=== PATIENT | male | born 1970 | race Caucasian/White ===

== ENCOUNTER 2020-06-03 19:31 | Emergency (ER) | payer BC, SELFPAY ==
[2020-06-03 19:35] VITALS: BP 171/99; PULSE 95; RESP 20; TEMP 36.6; O2SAT 95
[2020-06-03] MEDS: EPINEPHrine HCL INJ 1 MG/ML AMPUL 0.3 MG SUB-Q (19:44)
[2020-06-03] MEDS: diphenhydrAMINE HCl INJ 50 MG/ML VIAL 25 MG IV PUSH (19:45)
[2020-06-03] MEDS: methylPREDNISolone SOD SUCC 125 MG VIAL IV PUSH (19:46)
[2020-06-03] MEDS: ALBUTEROL SULFATE NEB 2.5 MG/3 ML INH INHALATION (19:46)
[2020-06-03 19:48] VITALS: PULSE 77; RESP 20; O2SAT 97
[2020-06-03 19:52] VITALS: PULSE 87; RESP 20; O2SAT 98
--- NOTE | 2020-06-03 19:56 | ED.ALLEREA ---
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 He started after he ate some shrimp approximately 7:00 p.m. this evening. He states he has had similar reactions in the past that got better with Benadryl. But there are other times where he has tolerated shrimp with no difficulty. complaint: allergic reaction and hives Onset (ago): minute(s) (30) Exposure: food Known history of allergy to: Shrimp Symptoms: rash, itching, difficulty breathing and other ( throat swelling) Severity: moderate Treatment prior to arrival: other ( oral antihistamine) Previous Allergic Reaction History: anaphylaxis Related Data Allergies Allergy/AdvReac Type Severity Reaction Status Date / Time Penicillins Allergy Unknown Verified 03/01/15 11:56 Review of Systems Constitutional: Constitutional: Denies chills and Denies fever(s) Eyes: Eyes: Denies change in vision and Denies photophobia ENT: Denies dysphagia, Denies nasal congestion and Denies sore throat Cardiovascular: Cardiovascular: Denies chest pain and Denies radiating jaw, neck or arm pain Respiratory: Respiratory: Denies cough, Denies dyspnea and Reports wheezing Gastrointestinal: Gastrointestinal: Denies abdominal pain, Denies diarrhea, Denies nausea and Denies vomiting Musculoskeletal: Musculoskeletal: Denies arthralgias and Denies joint swelling Integumentary/Breasts: Skin/Breast: Reports pruritus, Reports erythema and Reports rash Neurologic: Denies vertigo, Denies dizziness and Denies syncope Hematologic/Lymphatic: Hematologic/Lymphatic: Denies easy bleeding and Denies easy bruising Allergic/Immunologic: Allergic/Immunologic: Denies lip swelling and Denies wheezing PMFSH Family History Family History (Updated 02/18/14 @ 07:13 by DOCTOR UNKNOWN) Mother Hypertension Social History Social History (Updated 06/03/20 @ 19:59 by Brent Skinner MD) Smoking status: Never smoker Alcohol intake: never Substance use: never Living arrangements: with family Exam Const: General: healthy appearing and alert Orientation/consciousness: patient oriented x3 Limitations: no limitations Other: Mild acute distress. No respiratory distress. HENMT: Head: normal to inspection Ears: external ears normal, TM's normal bilaterally and EAC's normal General nose exam: Normal nares present Face and sinus: normal facial exam Mouth: Yes moist mucous membranes Throat: uvula midline Other: Very mild pharyngeal edema. No erythema or exudate. Eyes: Conjunctivae: conjunctivae normal Pupils: Equal, round and reactive pupils present EOM: EOMs intact bilaterally Neck: Neck: normal visual inspection and no lymphadenopathy Resp: Effort & Inspection: normal respiratory effort and not labored Auscultation: no rales, no rhonchi and wheezes Cardio: Rate: regular rate Rhythm: regular rhythm Heart sounds: no murmurs Skin: General skin exam: normal color, no jaundice and no pallor Rashes: no rashes Neuro: General: patient oriented x3, moves all extremities, no focal motor deficits and CN's II-XI intact bilaterally Speech: normal speech Gait exam (Neuro): Normal gait present Extrem: General: normal to inspection and no clubbing, cyanosis or edema Psych: Appearance: grossly normal and well kempt Affect: normal affect and Anxious affect present Attitude: cooperative Thought content: Yes Normal thought content present Course Course Emergency Course: 2100: patient states he is asymptomatic. He denies throat swelling, itching, wheezing or shortness of breath. Exam is normal. Vital Signs Vital signs: Vit
[2020-06-03 20:06] VITALS: BP 158/91; PULSE 82; RESP 20; O2SAT 97
[2020-06-03 20:46] VITALS: BP 158/88; PULSE 86; RESP 16; O2SAT 97
[2020-06-03 21:44] VITALS: BP 134/94; PULSE 79; RESP 16; O2SAT 96
== END 2020-06-03 22:01 | disposition home or self-care (01) ==
PROVIDERS: Emergency Provider Emergency Medicine
DX: T78.2XXA Anaphylactic shock, unspecified, initial encounter (principal)
CPT/HCPCS: 94640; 96372; 96374; 96375; 99283; 99284; J0171; J1200; J2930

== ENCOUNTER 2020-10-26 08:31 | Emergency (ER) | payer BC, SELFPAY ==
--- NOTE | ~2020-10-26 | XR_ITS ---
EXAMINATION: XR abdomen/kub 1V EXAM DATE: 10/26/2020 09:22 INDICATION: RLQ abdominal pain. TECHNIQUE: Frontal projection(s) of the abdomen for interpretation. There is no prior study for alexx taylor. FINDINGS: Small amount of colonic stool and gas. No small bowel dilation, nonobstructive bowel gas pattern. There are no suspicious calcifications identified. There is no organomegaly suspected. There are mild bony degenerative changes. IMPRESSION: Unremarkable abdomen x-ray exam. Reviewed, dictated and finalized at location B.
[2020-10-26 08:38] VITALS: BP 148/106; PULSE 80; RESP 14; TEMP 36.8; O2SAT 96
--- NOTE | 2020-10-26 08:55 | ED.GENADULT ---
HPI - General Adult General Chief complaint: Abdominal Pain Stated complaint: Sharp pain in r side Source: patient Mode of arrival: ambulatory Limitations: no limitations History of Present Illness HPI narrative: Raymond is a previously healthy 50M with no surgical history presented to the ER with RLQ pain. It started insidiously while sitting 3-4 days ago. It is described as a constant pain that feels like gas. It is not relieved with pepto. No aggravating factors. He denies any CP, SOB, nausea, vomiting, melena, constipation, dysuria, hematuria or hematochezia. He has a BM daily and had one this morning. Related Data Home Medications Medication Instructions Recorded Confirmed No Home Medications 10/26/20 10/26/20 Allergies Allergy/AdvReac Type Severity Reaction Status Date / Time Penicillins Allergy Unknown Verified 03/01/15 11:56 Review of Systems Constitutional: Constitutional: Reports no additional constitutional complaints Eyes: Eyes: Reports no additional eye complaints ENT: Reports system reviewed and no additional complaints, except as documented Cardiovascular: Cardiovascular: Reports no additional cardiovascular complaints Respiratory: Respiratory: Reports no additional respiratory complaints Gastrointestinal: Gastrointestinal: Reports as per HPI Genitourinary: Genitourinary: Reports no additional male genitourinary complaints Musculoskeletal: Musculoskeletal: Reports no additional musculoskeletal complaints Integumentary/Breasts: Skin/Breast: Reports system reviewed and no additional complaints, except as docu Neurologic: Reports system reviewed and no additional complaints, except as documented Psychiatric: Psychiatric: Reports no additional psychiatric complaints Endocrine: Endocrine: Reports no additional endocrine complaints Hematologic/Lymphatic: Hematologic/Lymphatic: Reports no additional hematologic/lymphatic complaints Allergic/Immunologic: Allergic/Immunologic: Reports no additional allergic/immunologic complaints [facility] Family History Family History Mother Hypertension Social History Social History Smoking status: Never smoker Alcohol intake: never Substance use: never Exam Const: General: no acute distress and alert Orientation/consciousness: patient oriented x3 Limitations: No altered mental status HENMT: Head: normal to inspection Other: atrauamtic Eyes: Conjunctivae: conjunctivae normal Pupils: Equal, round and reactive pupils present Neck: Neck: normal visual inspection Chest: Chest palpation & inspection: normal inspection of the chest Resp: Effort & Inspection: normal respiratory effort Auscultation: clear to auscultation bilaterally Cardio: Rate: regular rate Rhythm: regular rhythm GI: Inspection: non-distended GI Palp: Yes Soft to palpation and No Guarding due to palpation present (GI) Other: mild TTP in the RUQ. No rebound tenderness or guarding. Negative psoas sign and obturator sign. : Testes: Testes normal Back/Spine/Pelvis: Back: no CVA tenderness Skin: General skin exam: normal color Rashes: no rashes Neuro: General: patient oriented x3 and moves all extremities Extrem: General: normal to inspection Psych: Appearance: grossly normal Mental Status: mental status grossly normal Affect: normal affect Course Course Emergency Course: Raymond was evaluated. Labs and Xray were ordered. He declined pain meds at this time. Labs largely unremarkable. Shepherd score of 2 points, low likelihood of appendicits, Appendicitis inflammatory response score 1 point, low risk EXAMINATION: XR abdomen/kub 1V EXAM DATE: 10/26/2020 09:22 INDICATION: RLQ abdominal pain. TECHNIQUE: Frontal projection(s) of the abdomen for interpretation. There is no prior study for comparison. FINDINGS: Small amount of colonic stool and gas. No
[2020-10-26 09:00] VITALS: BP 158/102; PULSE 69; RESP 14; O2SAT 95
--- NOTE | 2020-10-26 09:06 | PC.NURSE ---
photo optics technician at bedside for kub ordered by erp
[2020-10-26 09:09] LABS: Basophils Absolute Auto 0.03 K/mm3 (0.00-0.10); Basophils Percent Auto 0.3 % (0.0-1.0); Eosinophils Absolute Auto 0.11 K/mm3 (0.02-0.50); Eosinophils Percent Auto 1.2 % (1.0-6.0); Hematocrit 44.2 % (40.0-54.0); Hemoglobin 14.5 g/dL (14.0-18.0); Immature Granulocyte Absolute 0.03 K/mm3 (0.00-0.00); Immature Granulocyte Percent A 0.3 % (0.0-0.0); Lymphocytes Absolute Auto 1.93 K/mm3 (1.10-4.50); Lymphocytes Percent Auto 20.6 % (18.0-42.0); Mean Corpuscular HGB Conc 32.8 g/dL (32.0-36.0); Mean Corpuscular Hemoglobin 28.5 pg (27.0-31.0); Mean Platelet Volume 9.8 fl (8.7-11.0); Monocytes Absolute Auto 0.82 K/mm3 (0.10-0.90); Monocytes Percent Auto 8.8 % (2.0-11.0); Neutrophils Absolute Auto 6.5 K/mm3 (1.7-7.2); Neutrophils Percent Auto 68.8 % (50.0-70.0); Platelet Count Result 262 K/mm3 (150-420); Red Blood Count 5.08 M/mm3 (4.70-6.10); Red Cell Distribution Width 12.4 % (11.6-14.4); White Blood Count 9.4 K/mm3 (4.8-10.8)
[2020-10-26 09:19] LABS: Prothrombin Time 10.6 Seconds (9.50-12.10)
[2020-10-26 09:21] LABS: Alanine Aminotransferase 43 U/L (16-63); Albumin Level 3.6 g/dL (3.4-5.0); Alkaline Phosphatase 99 U/L (46-116); Anion Gap 9 mmol/L (8-16); Aspartate Amino Transferase 16 U/L (15-37); Bilirubin,Total 0.7 mg/dL (0.00-1.00); Blood Urea Nitrogen 10 mg/dL (7-18); Calcium 9.1 mg/dL (8.5-10.1); Carbon Dioxide 27 mmol/L (21-32); Chloride 103 mmol/L (98-108); Estimated CRCL calculation 105 ml/min; Estimated Glomerular Filt Rate > 60; Glucose 99 mg/dL (70-99); Osmolality Calculated 287 mOsm/kg (285-295); Potassium 3.6 mmol/L (3.5-5.1); Sodium 139 mmol/L (136-145); Total Protein 7.7 g/dL (6.4-8.2)
[2020-10-26 09:24] LABS: CRP 3.2 mg/dL (0.0-0.9); Lipase 156 U/L (73-393)
[2020-10-26 09:30] LABS: Lactic Acid Reflex 0.6 mmol/L (0.4-2.0)
[2020-10-26 10:10] LABS: Add Urine Microscopic? NO; Appearance Urine Clear (Clear); Bilirubin Urine Negative (Negative); Blood Urine Negative (Negative); Color Urine Yellow (Yellow); Glucose Urine UA Negative (Negative); Ketones Urine Negative (Negative); Leukocyte Esterase Ur Negative (Negative); Nitrate Urine Negative (Negative); Protein Urine Negative (Negative); Specific Grav Ur 1.015 (1.010-1.020); Urobilinogen Urine 0.2 mg/dL (0.2-1.0)
[2020-10-26 10:35] VITALS: BP 144/98; PULSE 67; RESP 20; O2SAT 100
--- NOTE | 2020-10-26 10:43 | PC.NURSE ---
pt tolerated lidocaine injections well. denies pain at this time. awaiting reduction. family at bedside.
--- NOTE | 2020-10-26 10:49 | PC.NURSE ---
pt tolerated reduction well. denies pain. arom noted to right ring finger. neuro-circ checks to distal right ring finger wnl. distal cap refill <2 sec to same.
--- NOTE | 2020-10-26 11:01 | PC.NURSE ---
metal finger splint applied to right ring finger. neuro-circ checks to distal digit wnl after splint application.
--- NOTE | 2020-10-26 11:05 | PC.NURSE ---
note of splint application written on wrong chart per this nurse
== END 2020-10-26 10:35 | disposition home or self-care (01) ==
PROVIDERS: Emergency Provider Family Medicine
DX: R10.9 Unspecified abdominal pain (principal)
CPT/HCPCS: 36415; 74018; 80053; 81003; 83605; 83690; 85025; 85610; 86140; 99282; 99283